=== PATIENT | male | born 1995 | race Caucasian/White ===

== ENCOUNTER 2022-10-31 13:01 | Emergency (ER) | payer OTHER ==
[2022-10-31 13:11] VITALS: BP 124/79; PULSE 68; RESP 16; TEMP 98.5; BMI 27.1
== END 2022-10-31 13:18 | disposition home or self-care (01) ==
LOC: FER 13:01
DX: K21.9 Gastro-esophageal reflux disease without esophagitis (principal)
CPT/HCPCS: 99281-25